=== PATIENT | male | born 1980 | race Caucasian/White ===

== ENCOUNTER → 2017-03-01 | Outpatient (CLI) | payer OTHER | LOC: RAD 15:15 | DX: M54.2 Cervicalgia (principal); M54.9 Dorsalgia, unspecified; M48.54XA Collapsed vertebra, not elsewhere classified, thoracic region, initial encounter for fracture | CPT/HCPCS: 71020; 72050; 72072; 72110 ==

== ENCOUNTER 2017-04-25 20:26 | Emergency (ER) | payer OTHER ==
[2017-04-26 00:20] LABS: HEMOGLOBIN 14.4 gm/dl (14.0-17.5); RED BLOOD COUNT 4.55 M/UL (4.20-5.50); WHITE BLOOD COUNT 3.6 K/UL (4.5-11.0)
== END 2017-04-26 03:05 | disposition home or self-care (01) ==
LOC: ER1 20:26
PROVIDERS: Physician Assistant
DX: L03.011 Cellulitis of right finger (principal); F17.210 Nicotine dependence, cigarettes, uncomplicated
CPT/HCPCS: 36415; 73140; 73200; 85025; 86140; 96365; 96366; 96375; 99284; J2270; J3370

== ENCOUNTER → 2017-05-19 | Outpatient (CLI) | payer OTHER | LOC: KOH-I 05-09 15:15 | DX: M54.5 Low back pain (principal); M51.26 Other intervertebral disc displacement, lumbar region; M51.36 Other intervertebral disc degeneration, lumbar region; M99.73 Connective tissue and disc stenosis of intervertebral foramina of lumbar region; M99.74 Connective tissue and disc stenosis of intervertebral foramina of sacral region | CPT/HCPCS: 72148 ==

== ENCOUNTER 2022-03-12 21:02 | Emergency (ER) | payer OTHER ==
[~2022-03-12 21:02] MED LIST: CITALOPRAM HBR10 MG PO; COLCHICINE 0.60.6 MG PO; ERYTHROMYCIN OP1 GM OS; FELDENE10 MG PO; FLEXERIL 10 MG10 MG PO; IBUPROFEN600 MG PO; IBUPROFEN800 MG PO; INDOCIN 50 MG C50 MG PO; KEFLEX CAP 500500 MG PO; KLONOPIN1 MG PO; MOBIC15 MG PO; NORFLEX 100 MG100 MG PO; PERCOCET 5-3251 EACH PO; PHENERGAN 25 MG25 M1 PO; PREDNISONE 50 M50 MG PO; PROTONIX40 MG PO; TESSALON PERLE100 MG PO; ZITHROMAX250 MG PO; ZOFRAN4 MG PO; ZYLOPRIM100 MG PO
== END 2022-03-12 23:30 | disposition left against medical advice (07) ==
LOC: ER1 21:02
DX: Z53.21 Procedure and treatment not carried out due to patient leaving prior to being seen by health care provider (principal)